=== PATIENT | male | born 1980 | race Two or more races ===

== ENCOUNTER 2019-07-23 12:16 | Inpatient (IN) | payer OTHER ==
[~2019-07-23] VITALS: Ht 170.2 cm; Wt 185.8 kg
[2019-07-23] MEDS ORDERED: SODIUM CHLORIDE 0.9% 1,000 ML IVB ONE (12:26)
[2019-07-23] MEDS ORDERED: MORPHINE SULFATE 4 MG/ML SYR/VIAL IV ONE (12:30)
[2019-07-23] MEDS ORDERED: cefTRIAXone 1GM/50ML D5W 50 ML IV ONE (13:45)
[2019-07-23] MEDS ORDERED: SODIUM CHLORIDE 0.9% 1,000 ML IV ONE (13:45)
[2019-07-23 13:48] LABS: Basophils # (auto) 0.1 uL; Basophils % (auto) 0.6 % (0.0-2.0); Eosinophils # (auto) 0.1 uL; Eosinophils % (auto) 0.8 % (0.0-7.0); Hematocrit 45.9 % (41.0-53.0); Hemoglobin 15.4 g/dL (13.5-17.5); Lymphocytes # (auto) 1.9 uL; Lymphocytes % (auto) 14.5 % (10.0-50.0); Mean Corpuscular Hemoglobin 29.7 pg (28.0-32.0); Mean Corpuscular Hgb Conc. 33.6 g/dL (32.0-36.0); Mean Corpuscular Volume 88.6 fL (80.0-100.0); Monocytes # (auto) 0.7 uL; Monocytes % (auto) 5.2 % (0.0-12.0); Neutrophils # (auto) 10.2 uL; Neutrophils % (auto) 78.9 % (37.0-80.0); Platelet Count (auto) 321 10^3/uL (140-450); Red Blood Cells 5.18 10^6/uL (4.5-5.90); Red Cell Distribution Width 13.2 % (11.8-14.3); White Blood Cell 12.8 10^3/uL (4.4-10.8)
[2019-07-23 13:55] LABS: Urine Bacteria NONE SEEN /hpf (None Seen); Urine Blood Negative /uL (Negative); Urine Specific Gravity 1.006 (1.001-1.035); Urine WBC <1 /hpf (0 - 3)
[2019-07-23 14:02] LABS: Albumin 4.3 g/dL (3.4-5.0); BUN/Creatinine Ratio 12.4; Calcium 9.1 mg/dL (8.5-10.1); Potassium 4.4 mmol/L (3.5-5.1)
[2019-07-23 14:04] LABS: Total Protein 8.2 g/dL (6.4-8.2)
[2019-07-23 14:21] LABS: INR < 0.93 (0.9-1.15); Partial Thromboplastin Time 29.9 sec (23.64-32.05)
[2019-07-23] MEDS ORDERED: NITROGLYCERIN 0.4 MG SL TAB SL PRN (16:00)
[2019-07-23] MEDS ORDERED: MORPHINE SULF INJ 2 MG/ML SYRINGE 1ML IV PRN (16:00)
[2019-07-23] MEDS ORDERED: ONDANSETRON HCL 4 MG/2 ML VIAL IV PRN (16:00)
[2019-07-23] MEDS: D5W/SOD CHL 0.45% 1,000 ML IV SCH (18:13)
[2019-07-23] MEDS: MORPHINE SULFATE 4 MG/ML SYR/VIAL IV PRN (19:34)
[2019-07-23 19:50] VITALS: BP 114/68
--- NOTE | 2019-07-23 19:50 | NUR ---
MS admit from ER MYRNA MANCILLA admitted to tele/MS. Patient oriented to MADDIE HAYES RN primary RN, unit, room, bed, and unit policies regarding patient care and visiting hours. Patient weighed by bedscale and encouraged to call if they need something. All questions and concerns addressed, patient verbalized understanding. Safety measures in place side rails x2 up, bed in lowest position, call light within reach. Will continue to monitor every hour and as needed.
[2019-07-23 21:30] VITALS: BP 114/68
[2019-07-23] MEDS: PIPERACILLIN-TAZOB 3.375GM 100 ML IV SCH (21:38)
[2019-07-24 04:38] VITALS: BP 111/68
[2019-07-24] MEDS: D5W/SOD CHL 0.45% 1,000 ML IV SCH ×4 (05:20→18:40)
[2019-07-24] MEDS: PIPERACILLIN-TAZOB 3.375GM 100 ML IV SCH ×3 (06:03→21:05)
[2019-07-24] MEDS: MORPHINE SULFATE 4 MG/ML SYR/VIAL IV PRN ×4 (06:15→20:43)
[2019-07-24 06:22] LABS: Basophils # (auto) 0.1 uL; Eosinophils # (auto) 0.2 uL; Eosinophils % (auto) 2.6 % (0.0-7.0); Hematocrit 40.8 % (41.0-53.0); Hemoglobin 14.2 g/dL (13.5-17.5); Lymphocytes # (auto) 1.9 uL; Lymphocytes % (auto) 25.3 % (10.0-50.0); Mean Corpuscular Hemoglobin 30.5 pg (28.0-32.0); Mean Corpuscular Hgb Conc. 34.8 g/dL (32.0-36.0); Mean Corpuscular Volume 87.7 fL (80.0-100.0); Monocytes # (auto) 0.5 uL; Monocytes % (auto) 6.7 % (0.0-12.0); Neutrophils # (auto) 4.9 uL; Neutrophils % (auto) 64.4 % (37.0-80.0); Nucleated Red Blood Cells % 0.1 %; Platelet Count (auto) 288 10^3/uL (140-450); Red Blood Cells 4.65 10^6/uL (4.5-5.90); Red Cell Distribution Width 13.3 % (11.8-14.3); White Blood Cell 7.6 10^3/uL (4.4-10.8)
[2019-07-24 06:32] LABS: Calcium 8.3 mg/dL (8.5-10.1); Potassium 3.8 mmol/L (3.5-5.1)
[2019-07-24 06:45] LABS: BUN/Creatinine Ratio 8.7
--- NOTE | 2019-07-24 06:50 | NUR ---
Patient left unit at 0650 to preop. Informed day shift nurse.
[2019-07-24] MEDS ORDERED: POVIDONE IODINE 5% TOPICAL CREAM TOP ONE (07:18)
[2019-07-24] MEDS ORDERED: metroNIDAZOLE 500MG/100ML 100 ML IV ONE (07:23)
[2019-07-24] MEDS ORDERED: SUCCINYLCHOLINE CHLORIDE 20 MG/ML 10ML VIAL IV ONE (07:28)
[2019-07-24] MEDS ORDERED: KETOROLAC TROMETH 30 MG/ML 1ML VIAL IV ONE (07:30)
[2019-07-24] MEDS ORDERED: LABETALOL HCL 5 MG/ML 4ML SYRINGE IV PRN (07:30)
[2019-07-24] MEDS ORDERED: ONDANSETRON HCL 4 MG/2 ML VIAL IV PRN (07:30)
[2019-07-24] MEDS ORDERED: HYDROmorphone HCL 2 MG/ML VL IV PRN (07:30)
[2019-07-24] MEDS ORDERED: MIDAZOLAM HCL 1MG/1ML-2 ML VIAL IV PRN (07:30)
[2019-07-24] MEDS ORDERED: MORPHINE SULFATE 4 MG/ML SYR/VIAL IV PRN (07:30)
[2019-07-24] MEDS ORDERED: ePHEDrine SULFATE 50 MG/ML AMP IV PRN (07:30)
--- NOTE | 2019-07-24 07:34 | NUR ---
Opening Note Assumed pt care from [facility] nurse. Pt is currently in OR. Chart reviewed
[2019-07-24] MEDS ORDERED: MIDAZOLAM HCL 1MG/1ML-2 ML VIAL ONE (07:45)
[2019-07-24] MEDS ORDERED: fentaNYL CITRATE 100 MCG/2 ML VL ONE (07:45)
[2019-07-24] MEDS ORDERED: MEPERIDINE HCL (50 MG/ML) 1 ML VIAL ONE (07:45)
[2019-07-24] MEDS ORDERED: DexAMETHasone SOD PHOS 10MG/1ML VIAL INJ ONE (08:10)
[2019-07-24] MEDS ORDERED: PROPOFOL 10 MG/ML 20 ML IV ONE (08:10)
[2019-07-24] MEDS ORDERED: NEOSTIGMINE 1 MG/ML INJ (10mg/10ML VIAL) ONE (08:39)
--- NOTE | 2019-07-24 09:00 | NUR ---
Unable to obtain 0900 vitals. pt is downstairs at this time .
[2019-07-24] MEDS ORDERED: GLYCOPYRROLATE 0.2 MG/ML 1ML VIAL ONE (09:08)
[2019-07-24 09:32] VITALS: BP 124/75
--- NOTE | 2019-07-24 09:34 | NUR ---
Pt Arrived Back on Unit Pt back on unit from OR. Pt is a/ox4 with no s/s of distress or SOB. Pt is currently on 2 L NC. 3 abdominal incisions noted; clean, dry and intact. No complaints of pain at this time. Discussed POC with pt; pt verbalized understanding. Safety measures maintained with call light within reach, bed in lowest position and side rails up. Will continue to monitor for changes q1hr and prn.
[2019-07-24 13:00] VITALS: BP 135/78
[2019-07-24 17:00] VITALS: BP 135/84
--- NOTE | 2019-07-24 19:30 | NUR ---
Opening Shift Note Assumed care of patient, awake and alert. No S/S of distress/SOB or pain. Instructed on POC and to call for assist PRN, will continue to monitor for changes Q1hr and PRN. Guards by bedside..
--- NOTE | 2019-07-24 21:30 | NUR ---
IV removal OF LAC '20 AND RH '22 IV DC'd with clean sterile technique, catheter fully intact. Pressure dressing applied to site. Patient tolerated well. NOTE:
--- NOTE | 2019-07-24 21:45 | NUR ---
RFA IV insertion IV access obtained, via clean sterile technique by inserting 22 gauge catheter at after 1 attempt(s). IV secured properly. No trauma to site. Patient tolerated well. NOTE:
[2019-07-24 22:00] VITALS: BP 111/82
[2019-07-25] MEDS: MORPHINE SULFATE 4 MG/ML SYR/VIAL IV PRN ×3 (00:47→11:37)
[2019-07-25] MEDS: D5W/SOD CHL 0.45% 1,000 ML IV SCH ×3 (00:48→14:40)
[2019-07-25] MEDS: PIPERACILLIN-TAZOB 3.375GM 100 ML IV SCH ×3 (01:49→14:00)
[2019-07-25 05:00] VITALS: BP 109/68
[2019-07-25 06:14] LABS: Basophils # (auto) 0.1 uL; Basophils % (auto) 0.6 % (0.0-2.0); Eosinophils # (auto) 0 uL; Eosinophils % (auto) 0.1 % (0.0-7.0); Hematocrit 39.1 % (41.0-53.0); Hemoglobin 13.8 g/dL (13.5-17.5); Lymphocytes # (auto) 1.4 uL; Mean Corpuscular Hemoglobin 30.6 pg (28.0-32.0); Mean Corpuscular Hgb Conc. 35.2 g/dL (32.0-36.0); Mean Corpuscular Volume 86.7 fL (80.0-100.0); Monocytes # (auto) 0.7 uL; Monocytes % (auto) 5.2 % (0.0-12.0); Neutrophils # (auto) 10.4 uL; Neutrophils % (auto) 83.1 % (37.0-80.0); Nucleated Red Blood Cells % 0.1 %; Platelet Count (auto) 342 10^3/uL (140-450); Red Blood Cells 4.51 10^6/uL (4.5-5.90); White Blood Cell 12.5 10^3/uL (4.4-10.8)
--- NOTE | 2019-07-25 08:00 | NUR ---
ASSESSMENT NOTE PATIENT IS ALERT ORIENTED X4, RESTING IN BED COMFORTABLY, ABLE TO SELF REPOSITIO AND VERBALIS HIS DEMANDS, 3 SMALL INCISION NOTED AT LOW ABDOMEN AREA, DRESSING IS DRY AND CLEAN, A METAL HAND CUFFS NOTED AT LEFT WRIEST AND BOTH FEET, POSITIVE FOR CIRCULATIONS, GUARDS AT BED SIDE AT ALL TIMES.
[2019-07-25 08:37] VITALS: BP 117/64
--- NOTE | 2019-07-25 12:32 | NUR ---
DR ESPANA IS HERE FOLLOWING UP ON PT
[2019-07-25 13:00] VITALS: BP 134/78
--- NOTE | 2019-07-25 13:21 | NUR ---
ALL DISCHARGE INSTRUCTION GIVEN TO PT, VERBALIS UNDERSTANDING. PT STATED I HAVEN'T GO TO BATHROOM, I NEED LAXATIVE TO HELP ME OUT, PAGE DR ESPANA
--- NOTE | 2019-07-25 13:25 | NUR ---
DR ESPANA CALLED BACK WITH NEW ORDERS
[2019-07-25] MEDS ORDERED: DOCUSATE SOD 100 MG CAP PO ONE (13:30)
--- NOTE | 2019-07-25 14:55 | NUR ---
SURGICAL CONSULT SPOKE WITH DR MIGUEL, MADE AWARE THAT PT WILL BE DISCHARGE BACK TO LONG-TERM, DR SEE SAID PT CLEAR TO GO
--- NOTE | 2019-07-25 15:16 | NUR ---
DISCHARGED AMBULATED OUT WITH HIS GUARDS, NO DISTRESS NOTED, VITAL SIGNS STABLE
== END 2019-07-25 15:16 | DRG 342 ==
LOC: EDBD 12:16 → EEVIPCON 12:24 → ER 12:24 → OVERFLOW 12:25 → EAST 19:52
PROVIDERS: ADMIT Internal Medicine; ATTEND Internal Medicine
PROC: 0DTJ4ZZ Resection of Appendix, Percutaneous Endoscopic Approach (ICD-10-PCS; principal; 2019-07-24 07:35)
DX: K35.80 Unspecified acute appendicitis (principal); Z68.44 Body mass index [BMI] 60.0-69.9, adult; K59.00 Constipation, unspecified; K40.90 Unilateral inguinal hernia, without obstruction or gangrene, not specified as recurrent; E66.01 Morbid (severe) obesity due to excess calories; Z79.899 Other long term (current) drug therapy
CPT/HCPCS: 36415; 71045; 74176; 80048; 80053; 81001; 83690; 85025; 85610; 85730; 86850; 86900; 86901; 94761; 96365; 96375; 96376; G0378; J0330; J0696; J1100; J2250; J2405; J2543; J2704; J3490